=== PATIENT | female | born 1985 | race Caucasian/White ===

== ENCOUNTER 2018-09-03 10:30 | Emergency (ER) | payer SELFPAY ==
[~2018-09-03] VITALS: Ht 162.6 cm; Wt 64.9 kg
[~2018-09-03 10:30] MED LIST: CLIN300C10 PO; FIORICET PO; IBUP-1542 PO
[2018-09-03 10:45] VITALS: Ht 162.6 cm; Wt 64.9 kg
[2018-09-03] MEDS ORDERED: FAMOTIDINE 20 MG TAB PO ONE (11:30)
[2018-09-03] MEDS ORDERED: ACETAMINOPHEN 325 MG TAB PO ONE (11:30)
[2018-09-03] MEDS ORDERED: FAMO-96 PO (12:28)
[2018-09-03] MEDS ORDERED: ACET500C5 PO (12:28)
--- NOTE | 2018-09-03 12:34 | ERD ---
ER Documentation Chief Complaint Chief Complaint mid abdominal pain x 2 weeks;denies n/v;had diarrhea/constipation sometimes HPI 32-year-old female presents with periumbilical pain for last 2 weeks. She describes it as sharp intermittent possibly increased with movement. She denies any lower abdominal pain some mild suprapubic. She may have dysuria. She has intermittent loose stools a couple times with also complaints of constipation. She denies any nausea vomiting, fevers. Denies . Denies vaginal discharge. ROS All systems reviewed and are negative except as per history of present illness. Medications Home Meds Active Scripts Acetaminophen* (Tylophen*) 500 Mg Capsule, 1 CAP PO Q6H PRN for PAIN AND OR ELEVATED TEMP, #20 CAP Prov:BERRY JONES MD 09/03/18 Famotidine* (Pepcid*) 20 Mg Tablet, 20 MG PO BID for 14 Days, #30 TAB Prov:BERRY JONES MD 09/03/18 Clindamycin Hcl* (Clindamycin Hcl*) 300 Mg Capsule, 300 MG PO TID for 10 Days, CAP Prov:JOSELIN GRAF 07/09/17 Acetamin/Butalbital/Caffeine* (Fioricet*) [id number] Tab, 1 TAB PO Q6H PRN for PAIN, #30 TAB Prov:JOSELIN GRAF 07/09/17 Ibuprofen* (Motrin*) 600 Mg Tab, 600 MG PO Q6, #30 TAB Prov:JOSELIN GRFA C 07/09/17 Ibuprofen* (Motrin*) 600 Mg Tab, 600 MG PO Q6, #30 TAB Prov:ANA WISEMAN NP 03/13/15 Allergies Allergies: Coded Allergies: No Known Drug Allergy (Verified Allergy, Unknown, 09/03/18) PMhx/Soc Medical and Surgical Hx: pt denies Medical Hx, pt denies Surgical Hx History of Surgery: No Anesthesia Reaction: No Hx Neurological Disorder: No Hx Respiratory Disorders: No Hx Cardiac Disorders: No Hx Psychiatric Problems: No Hx Miscellaneous Medical Probl: No Hx Alcohol Use: No Hx Substance Use: No Hx Tobacco Use: No Smoking Status: Never smoker Physical Exam Vitals Vital Signs Date Temp Pulse Resp B/P (MAP) Pulse Ox O2 O2 Flow FiO2 Time Delivery Rate 09/03/18 98.1 91 18 117/72 98 10:45 (87) Physical Exam Const: No acute distress Head: Atraumatic Eyes: Normal Conjunctiva ENT: Normal External Ears, Nose and Mouth. Neck: Full range of motion. No meningismus. Resp: Clear to auscultation bilaterally Cardio: Regular rate and rhythm, no murmurs Abd: Soft, minimal tenderness periumbilical area. No tenderness McBurney's point no Argueta sign. No rebound or masses. Non distended. Normal bowel sounds Skin: No petechiae or rashes Back: No midline or flank tenderness Ext: No cyanosis, or edema Neur: Awake and alert Psych: Normal Mood and Affect Result Diagram: 09/03/18 1146 09/03/18 1146 Results 24 hrs Laboratory Tests Test 09/03/18 11:46 White Blood Count 11.5 10^3/ul Red Blood Count 3.99 10^6/ul Hemoglobin 11.3 g/dl Hematocrit 35.2 % Mean Corpuscular Volume 88.2 fl Mean Corpuscular Hemoglobin 28.3 pg Mean Corpuscular Hemoglobin Concent 32.1 g/dl Red Cell Distribution Width 13.7 % Platelet Count 456 10^3/UL Mean Platelet Volume 10.6 fl Immature Granulocytes % 0.300 % Neutrophils % 77.2 % Lymphocytes % 16.6 % Monocytes % 4.6 % Eosinophils % 1.0 % Basophils % 0.3 % Nucleated Red Blood Cells % 0.0 /100WBC Immature Granulocytes # 0.040 10^3/ul Neutrophils # 8.8 10^3/ul Lymphocytes # 1.9 10^3/ul Monocytes # 0.5 10^3/ul Eosinophils # 0.1 10^3/ul Basophils # 0.0 10^3/ul Nucleated Red Blood Cells # 0.0 10^3/ul Urine Color YELLOW Urine Clarity SLIGHTLY CLOUDY Urine pH 6.0 Urine Specific [place] 1.011 Urine Ketones NEGATIVE mg/dL Urine Nitrite NEGATIVE mg/dL Urine Bilirubin NEGATIVE mg/dL Urine Urobilinogen NEGATIVE mg/dL Urine Leukocyte Esterase NEGATIVE Mary/ul Urine Microscopic RBC 5 /HPF Urine Microscopic WBC 2 /HPF Urine Squamous Epithelial Cells FEW /HPF Urine Mucus MODERATE /HPF Urine Hemoglobin 1+ mg/dL Urine Glucose NEGATIVE mg/dL Urine Total Protein NEGATIVE mg/dl Sodium Level 139 mmol/L Potassium Level 4.1 mmol/L Chloride Level 102 mmol/L Carbon Dioxide Level 26 mmol/L Anion Gap 11 Blood Urea Nitrogen 11 mg/dl Creatinine 0.60 mg/dl Est Glomerular Filtrat Rate mL/min > 60 mL/min Glucose Level 90 mg/dl Calcium Level 9.6 mg/dl Total Bilirubin 0.3 mg/dl Direct Bilirubin 0.00 mg/dl Indirect Bilirubin 0.3 mg/dl Aspartate Amino Transf (AST/SGOT) 15 IU/L Alanine Aminotransferase (ALT/SGPT) 12 IU/L Alkaline Phosphatase 85 IU/L Total Protein 9.5 g/dl Albumin 4.6 g/dl Globulin 4.90 g/dl Albumin/Globulin Ratio 0.93 Lipase 37 U/L POC Beta HCG, Qualitative NEGATIVE Current Medications Medications Dose Sig/David Start Time Status Last (Trade) Ordered Route PRN Stop Time Admin Dose Reason Admin 650 mg ONCE ONCE 09/03/18 DC 09/03/18 Acetaminophen PO 11:30 11:41 (Tylenol 09/03/18 11:31 Tab) Famotidine 20 mg ONCE ONCE 09/03/18 DC 09/03/18 (Pepcid) PO 11:30 11:41 09/03/18 11:31 Procedures/MDM Urine shows hemoglobin without leukocytes, additional acute abnormalities.. HCG negative. CBC shows minimal leukocytosis, slight anemia and thrombocytosis. CMP and lipase showed no acute abnormalities. Patient was given Pepcid and Tylenol. Patient resents with periumbilical pain for 2 weeks. Patient is appropriate for outpatient evaluation for persistent symptoms currently. She has no current signs or symptoms of appendicitis, surgical abdomen, obstruction, abnormal vital signs or concerning signs or symptoms. Urine was sent for gonorrhea chlamydia. She will discharged home with Pepcid, Tylenol, recommendations for primary care follow-up and return precautions. The patient was stable with no new complaints during the ER course. Clinically, there is no current evidence to suggest meningitis, sepsis, acute abdomen, pneumonia, stroke, acute coronary syndrome, pulmonary embolism, aortic dissection or any other emergent condition appearing to require further evaluation or hospitalization. Patient counseled regarding my diagnostic impression and care plan. Prior to discharge all questions answered. Pt agrees with treatment plan and understands strict return precautions. Pt is instructed to follow up with primary care provider within 24-48 hours. Precautionary instructions provided including instructions to return to the ER if not improving or for any worsening or changing symptoms or concerns. Departure Diagnosis: Primary Impression: Abdominal pain Abdominal location: periumbilical Qualified Codes: R10.33 - Periumbilical pain Condition: Stable Patient Instructions: Abdominal Pain Referrals: NO PRIMARY,CARE PHYSICIAN (PCP) [facility]) Usted se raymond hecho un examen mdico de control que le indica que no est en waqas condicin que requiera tratamiento urgente en el Departamento de Emergencia. Un estudio ms profundo y el tratamiento de buenrostro condicin pueden esperar sin ningn riesgo hasta que usted sea atendida/o en el consultorio de buenrostro mdico o waqas clnica. Es responsabilidad suya arreglar waqas herbie para el seguimiento del delfino. MANEJO DE CONDICIONES NO URGENTES EN EL FUTURO 1) Si usted tiene un mdico de atencin primaria: Usted debera llamar a buenrostro mdico de atencin primaria antes de venir al departamento de emergencia. Despus de las horas de consultorio, buenrostro doctor o buenrostro asociado/a est disponible por telfono. El mdico o enfermero de yenny en el servicio telefnico puede asesorarle por bartolome medio para atender el problema, o delfino contrario se puede programar waqas herbie. 2) Si usted no tiene un mdico de atencin primaria: Llame al mdico o clnica de referencia que aparece abajo eric las horas de consultorio para hacer waqas herbie para que le vean. CLINICAS: [facility] [phone] [facility] [phone] [facility] [phone] [facility] [phone] [facility] [phone] [facility]. [phone] [address] Additional Instructions: VAMOS A TRATAR PARA GASTRITIS. EXAMINES NORMALES. Cheque otro vez con buenrostro doctor primario en el proximo teixeira or regresa para mas o nueva simptomas. Horita los examines dice no tiene appendicits o emferma mal, nicki es importante coma esta en el proximo bossman. chequ 8-12 horas par mas dolor, especialamente derecho y abajo vomito , fiebre, nueva simptomas. BERRY JONES MD Sep 03, 2018 12:34
[2018-09-03] MEDS: CEFAZOLIN 1 GM INJ IM ONE ×3 (13:16→13:25)
[2018-09-03 13:21] VITALS: BP 113/78; PULSE 80; RESP 18
== END 2018-09-03 13:20 | disposition home or self-care (01) ==
LOC: FTE 10:30
DX: R10.33 Periumbilical pain (principal)
CPT/HCPCS: 80053; 81001; 81025; 83690; 85025; 87591; 99283; J0690